=== PATIENT | female | born 1950 | race Caucasian/White ===

== ENCOUNTER 2018-12-25 10:11 | Day surgery (SDC) | payer MEDICARE, OTHER ==
[~2018-12-25] VITALS: Ht 167.6 cm; Wt 76.8 kg
[~2018-12-25 10:11] MED LIST: ACEASPCAF PO; ALBU90OI61 INH; BRINTELLIX10 MG PO; Bystolic20 MG PO; HYDCHL12.5 PO; Hair, Skin & N1 EACH PO; LOSA50 PO; OMEPRAZOLE MAGN20 MG PO; PRED5 PO
[2018-12-25] MEDS ORDERED: METO100ER PO (10:45)
[2018-12-25] MEDS ORDERED: CALCIUM + VIT1 EACH PO (10:47)
--- NOTE | 2018-12-25 14:01 | NUR ---
12/25/18 1401 Gui Angel PATIENT INTO SDU RESTING IN BED AND DROWSY. PATIENT VSS, TOLERATING PO FLUIDS WELL. DISCHARGE INSTRUCTIONS REVIEWED WITH PATIENT AND FRIEND, BOTH DENY HAVING ANY QUESTIONS AT THIS MOMENT. NURSE ASSISTED PATIENT VIA WC TO HER RIDE HOME.
== END 2018-12-25 14:00 | disposition home or self-care (01) ==
LOC: ORSCSDS 10:11
PROVIDERS: Student in an Organized Health Care Education/Training Program
PROC: 0DBH8ZX Excision of Cecum, Via Natural or Artificial Opening Endoscopic, Diagnostic (ICD-10-PCS; principal; 2018-12-25 11:30)
DX: D50.9 Iron deficiency anemia, unspecified (principal); Z86.010 Personal history of colon polyps; K63.5 Polyp of colon; K57.30 Diverticulosis of large intestine without perforation or abscess without bleeding; I10 Essential (primary) hypertension; J44.9 Chronic obstructive pulmonary disease, unspecified; M35.3 Polymyalgia rheumatica; Z87.891 Personal history of nicotine dependence; Z79.899 Other long term (current) drug therapy
CPT/HCPCS: 88305; J7120

== ENCOUNTER → 2023-09-16 | Outpatient (CLI) | payer MEDICARE, OTHER ==
[~2023-09-16] MED LIST changes: +CALCIUM + VIT1 EACH PO; +METO100ER PO
[2023-09-16 16:38] LABS: BASOPHILS ABSOLUTE AUTO 0.06 K/mm3 (0.00-0.23); BASOPHILS PERCENT AUTO 1 % (0-2); EOSINOPHILS ABSOLUTE AUTO 0.31 K/mm3 (0.00-0.68); EOSINOPHILS PERCENT AUTO 4 % (0-6); Hematocrit 44.9 % (33.0-51.0); IMMATURE GRAN ABSOLUTE AUTO 0.01 K/mm3 (0.00-0.10); IMMATURE GRAN PERCENT AUTO 0 % (0-1); LYMPHOCYTES ABSOLUTE AUTO 1.83 K/mm3 (0.84-5.20); LYMPHOCYTES PERCENT AUTO 26 % (21-46); MONOCYTES ABSOLUTE AUTO 0.62 K/mm3 (0.16-1.47); MONOCYTES PERCENT AUTO 9 % (4-13); Mean Corpuscular HGB 30.9 pg (26.0-34.0); Mean Corpuscular HGB Conc 33.4 g/dL (31.5-36.5); Mean Corpuscular Volume 93 fL (80-100); Mean Platelet Volume 9.7 fL (9.1-12.4); NEUTROPHILS ABSOLUTE AUTO 4.33 K/mm3 (1.96-9.15); NEUTROPHILS PERCENT AUTO 61 % (41-73); Platelet Count 271 K/mm3 (150-400); RDW Coefficient Variation 13.9 % (11.7-14.2); RDW Standard Deviation 47.2 fL (35.1-46.3); Red Blood Cell Count 4.85 M/mm3 (3.80-5.20); White Blood Cell Count 7.16 K/mm3 (4.00-11.30)
[2023-09-16 16:51] LABS: Albumin, Blood 3.7 g/dL (3.4-5.0); Albumin/Globulin Ratio 0.8 (0.8-1.8); Bilirubin, Total 0.4 mg/dL (0.1-1.0); Bun/Creatinine Ratio 21.4 (12.0-20.0); Calcium, Blood 9.4 mg/dL (8.5-10.1); Creatinine, Blood 0.84 mg/dL (0.40-1.00); Globulin, Blood 4.4 g/dL (2.2-4.0); Potassium, Blood 4.2 mmol/L (3.5-5.5); Total Protein, Blood 8.1 g/dL (6.4-8.2)
[2023-09-16 17:04] LABS: Bacteria Few /hpf; Red Blood Cells, Urine Not Seen /hpf (0-2); Source, Urine Clean Catch; Squamous Epithelial Cells Few /hpf (Few)
== END | disposition home or self-care (01) ==
LOC: LAB 16:35 → LAB SHORT 16:35
PROVIDERS: Emergency Medicine
DX: R10.9 Unspecified abdominal pain (principal); R82.79 Other abnormal findings on microbiological examination of urine
CPT/HCPCS: 80053; 81015; 83690; 85025; 87086